=== PATIENT | male | born 1950 | race American Indian/Alaskan Native ===

== ENCOUNTER 2016-10-28 14:45 | Emergency (ER) | payer MEDICARE, MEDICAID ==
[2016-10-28 14:57] VITALS: BMI 19.6
[2016-10-28] MEDS ORDERED: TDAP Vaccine 0.5 mL Syr IM ONE (14:58)
[2016-10-28 14:59] VITALS: RESP 18; TEMP 98.6; O2SAT 97
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
--- NOTE | 2016-10-28 15:48 | CT ---
PROCEDURE: CT HEAD WITHOUT CONTRAST. HISTORY: headache COMPARISON: None available. TECHNIQUE: Axial computed tomography images were obtained through the head/brain without intravenous contrast. Radiation dose: Total exam DLP = 710 mGy-cm. This CT exam was performed using one or more of the following dose reduction techniques: Automated exposure control, adjustment of the mA and/or kV according to patient size, and/or use of iterative reconstruction technique. FINDINGS: HEMORRHAGE: No intracranial hemorrhage. BRAIN: No mass effect or edema. No atrophy or chronic microvascular ischemic changes. VENTRICLES: Unremarkable. No hydrocephalus. CALVARIUM: There is a small scalp hematoma over the left frontal region. There is no associated fracture PARANASAL SINUSES: Unremarkable as visualized. No significant inflammatory changes. MASTOID AIR CELLS: Unremarkable as visualized. No inflammatory changes. OTHER FINDINGS: None. IMPRESSION: No acute findings
--- NOTE | 2016-10-28 15:54 | CT ---
PROCEDURE: CT MAXILLOFACIAL BONES WITHOUT CONTRAST HISTORY: left orbital pain s/p injury COMPARISON: None TECHNIQUE: Contiguous axial CT images of the maxillofacial bones were obtained. Coronal and sagittal reformats were generated. Radiation dose: Total exam DLP = 815 mGy-cm. This CT exam was performed using one or more of the following dose reduction techniques: Automated exposure control, adjustment of the mA and/or kV according to patient size, and/or use of iterative reconstruction technique. FINDINGS: NASAL BONES: Unremarkable. ORBITS: Unremarkable. PARANASAL SINUSES/ MASTOIDS: Clear. MAXILLA: Dental disease is seen with loss of teeth and periapical lucencies MANDIBLE/ TEMPOROMANDIBULAR JOINTS: Unremarkable. SKULL BASE: Unremarkable. TEMPORAL BONES: Middle ears and mastoid grossly unremarkable. OTHER FINDINGS: None. IMPRESSION: No acute fracture
--- NOTE | 2016-10-28 15:59 | CT ---
PROCEDURE: CT Cervical Spine without contrast HISTORY: Fall, head injury, pain COMPARISON: None available. TECHNIQUE: Axial computed tomography images were obtained of the cervical spine without the use of intravenous contrast. Coronal and sagittal reformatted images were created and reviewed. Radiation dose: Total exam DLP = 351 mGy-cm. This CT exam was performed using one or more of the following dose reduction techniques: Automated exposure control, adjustment of the mA and/or kV according to patient size, and/or use of iterative reconstruction technique. FINDINGS: VERTEBRAE: No fracture. Normal alignment. No destructive bony lesion. DISCS/SPINAL CANAL/NEURAL FORAMINA: No significant central canal or neural foraminal stenosis. Central disc protrusion at C5-6. PARASPINAL SOFT TISSUES: Unremarkable. OTHER FINDINGS: Facet arthropathy is seen on the right side of C3-4 and left side of C5-6 IMPRESSION: No acute findings
[2016-10-28 17:17] VITALS: BP 126/74; PULSE 64
== END 2016-10-28 17:40 | disposition home or self-care (01) ==
LOC: ED 14:45
DX: S01.01XA Laceration without foreign body of scalp, initial encounter (principal); S00.83XA Contusion of other part of head, initial encounter; S09.90XA Unspecified injury of head, initial encounter; W31.89XA Contact with other specified machinery, initial encounter; Z23 Encounter for immunization

== ENCOUNTER 2016-11-08 10:29 | Emergency (ER) | payer MEDICARE, MEDICAID ==
[2016-11-08 10:33] VITALS: BP 127/67; PULSE 71; RESP 18; TEMP 98.3; O2SAT 97; BMI 19.5
--- NOTE | 2016-11-08 10:44 | ED PDOC ---
Arrival/HPI - General Chief Complaint: Suture/Staple Removal Time Seen by Provider: 11/08/16 10:35 Historian: Patient - History of Present Illness Narrative History of Present Illness (Text): 11/08/16 10:45 66yr old male presents today for staple removal to the left frontal scalp. Patient states he sustained a laceration 10 days ago. The patient denies fevers or chills. Complaining of some intermittent slight headaches. Denies dizziness or weakness. No chest pain or shortness of breath. No vomiting. Denies headache at present time. No other complaints Past Medical History - Provider Review Nursing Documentation Reviewed: Yes - Travel History Have you recently traveled outside [place] w/in the past 3 mons?: No - Infectious Disease Hx of Infectious Diseases: None - Tetanus Immunization Tetanus Immunization: Up to Date - Cardiac Hx Cardiac Disorders: No - Pulmonary Hx Respiratory Disorders: No - Neurological Hx Neurological Disorder: No - HEENT Hx HEENT Disorder: No - Renal Hx Pyelonephritis: Yes - Endocrine/Metabolic Hx Endocrine Disorders: No - Hematological/Oncological Hx Anemia: Yes - Musculoskeletal/Rheumatological Hx Musculoskeletal Disorders: No - Gastrointestinal Hx Hemorrhoids: Yes - Psychiatric Hx Psychophysiologic Disorder: No Hx Substance Use: No Family/Social History - Physician Review Nursing Documentation Reviewed: Yes Family/Social History: Unknown Family HX Smoking Status: Unknown If Ever Smoked Hx Alcohol Use: Yes Hx Substance Use: No Allergies/Home Meds Allergies/Adverse Reactions: Allergies Penicillins Allergy (Verified 11/08/16 10:34) RASH Review of Systems - Review of Systems Constitutional: absent: Fatigue, Fevers Eyes: absent: Vision Changes, Photophobia, Eye Pain Respiratory: absent: SOB, Cough Cardiovascular: absent: Chest Pain, Palpitations Gastrointestinal: absent: Abdominal Pain, Nausea, Vomiting Genitourinary Male: absent: Dysuria Musculoskeletal: absent: Arthralgias, Back Pain, Neck Pain Skin: Laceration Neurological: Headache Physical Exam Vital Signs Reviewed: Yes Vital Signs Temp Pulse Resp BP Pulse Ox 11/08/16 10:32 98.3 F 71 18 127/67 97 Temperature: Afebrile Blood Pressure: Normal Pulse: Regular Respiratory Rate: Normal Appearance: Positive for: Well-Appearing, Non-Toxic, Comfortable Pain Distress: None Mental Status: Positive for: Alert and Oriented X 3 - Systems Exam Head: Present: Laceration (healing laceration with [address]; no edema , no erythema; no ecchymosis; ) Pupils: Present: PERRL Extroacular Muscles: Present: EOMI Respiratory/Chest: Present: Clear to Auscultation Cardiovascular: Present: Regular Rate and Rhythm Skin: Present: Warm, Dry Psychiatric: Present: Alert, Oriented x 3 Medical Decision Making ED Course and Treatment: 11/08/16 10:47 Patient is nontoxic well-appearing in no distress. Vital signs are stable. Staple removal: 3 ruben removed Wound healing well without signs of infection On patient's prior visit to the emergency room for this head injury a CAT scan of the head was obtained with no intracranial hemorrhage. Patient complaining of intermittent headaches. I discussed concussion symptoms with the patient and I have advised follow-up with a neurologist. Patient denies headache at present time. I advised the patient to keep the wound clean and dry apply bacitracin twice daily and return if symptoms worsen persist or if new symptoms develop Impression: staple removal Keep the wound clean and dry Apply bacitracin twice daily Follow up with primary care physician within the next 2 days Follow up with the neurologist. Return immediately if symptoms worsen persist or if new symptoms develop Disposition/Present on Arrival - Present on Arrival Any Indicators Present on Arrival: No History of DVT/PE: No History of Uncontrolled Diabetes: No Urinary Catheter: No History of Decub. Ulcer: No History Surgical Site Infection Following: None - Disposition Have Diagnosis and Disposition been Completed?: Yes Diagnosis: Removal of ruben Disposition: HOME/ ROUTINE Disposition Time: 10:41 Patient Plan: Discharge Condition: GOOD Additional Instructions: Keep the wound clean and dry Apply bacitracin twice daily Follow up with primary care physician within the next 2 days Return immediately if symptoms worsen persist or if new symptoms develop Referrals: Gerson Dorsey MD [Staff Provider] - Follow up with primary Diamond Fisher MD [Staff Provider] - Follow up with primary
== END 2016-11-08 11:01 | disposition home or self-care (01) ==
LOC: ED 10:29
DX: Z48.02 Encounter for removal of sutures (principal)